=== PATIENT | female | born 1985 | race Caucasian/White ===

== ENCOUNTER 2017-04-21 07:12 | Emergency (ER) | payer MEDICAID ==
[~2017-04-21] VITALS: Ht 157.5 cm; Wt 56.8 kg
[2017-04-21 08:00] LABS: HEMATOCRIT 39.8 % (34.6-47.8); HEMOGLOBIN 13.4 g/dL (11.7-16.4); WHITE BLOOD COUNT 11.1 x10^3/uL (3.4-10)
[2017-04-21] MEDS ORDERED: SODIUM CHLORIDE 0.9% 1,000ML IVBOLUS ONE (08:00)
[2017-04-21] MEDS ORDERED: SODIUM CHLORIDE FLUSH 10ML SYR IVF ONE (08:00)
[2017-04-21 08:13] LABS: BLOOD UREA NITROGEN 7 mg/dL (7-18)
[2017-04-21 08:17] LABS: IS PT STATUS REG ER OR PRE ER? YES
[2017-04-21] MEDS ORDERED: FAMOTIDINE 20 MG/2 ML IVPush ONE (09:00)
[2017-04-21] MEDS ORDERED: OMNIPAQUE 350 MG/ML, 100ML BOTTLE ONE (09:11)
[2017-04-21 10:17] VITALS: BP 119/82
[2017-04-21] MEDS ORDERED: SODIUM CHLORIDE 0.9%, 500ML IVBOLUS ONE (11:00)
[2017-04-21] MEDS ORDERED: ACETAMINOPHEN 325 MG TABLET PO ONE (11:00)
== END 2017-04-21 10:36 | disposition home or self-care (01) ==
LOC: ED 08:18
DX: M94.0 Chondrocostal junction syndrome [Tietze] (principal); Z87.891 Personal history of nicotine dependence
CPT/HCPCS: 36415; 71275; 80048; 81003; 82040; 83880; 84484; 85025; 93005; 96361; 96374; 99285; J7030; J7040; Q9967; S0028

== ENCOUNTER 2017-05-11 08:25 | Outpatient (CLI) | payer MEDICAID ==
[~2017-05-11] VITALS: Ht 157.5 cm; Wt 59.1 kg
[2017-05-11 09:23] LABS: AMNISURE NEGATIVE (NEGATIVE)
== END 2017-05-11 12:25 | disposition home or self-care (01) ==
LOC: LDOP 08:25
PROVIDERS: ATTEND Obstetrics & Gynecology
DX: O62.9 Abnormality of forces of labor, unspecified (principal); Z3A.39 39 weeks gestation of pregnancy
CPT/HCPCS: 59025; 84112; 99201; G0463

== ENCOUNTER 2017-05-12 03:35 | Inpatient (IN) | payer MEDICAID ==
[~2017-05-12] VITALS: Ht 157.5 cm; Wt 58.0 kg
[2017-05-12] MEDS ORDERED: FENTANYL PF 100 MCG/2ML ONE ×2 (03:40→04:34)
[2017-05-12] MEDS ORDERED: OXYTOCIN 30U/ 0.9% NaCL 500ML 500 ML IV ONE (03:40)
[2017-05-12] MEDS ORDERED: OXYTOCIN 30U/ 0.9% NaCL 500ML 500 ML IV PRN (03:40)
[2017-05-12] MEDS ORDERED: D5%-LACTATED RINGERS 1,000 ML IV SCH (03:40)
[2017-05-12] MEDS ORDERED: NEWBORN KIT ONE (03:52)
[2017-05-12] MEDS ORDERED: OXYTOCIN 30U/ 0.9% NaCL 500ML 500 ML ONE ×2 (03:52→16:47)
[2017-05-12] MEDS: LACTATED RINGERS 1,000 ML IV SCH ×7 (03:53→21:07)
[2017-05-12 03:59] LABS: MEAN CORPUSCULAR HEMOGLOBIN 31.8 pg (27.0-34.8); MEAN CORPUSCULAR HGB CONC 33.9 g/dL (32.4-35.8); MEAN CORPUSCULAR VOLUME 93.7 fL (80-100); MEAN PLATELET VOLUME 9.4 fL (7.4-10.4); PLATELET COUNT 164 x10^3/uL (130-400); RED BLOOD COUNT 3.93 x10^6/uL (3.82-5.3); RED CELL DISTRIBUTION WIDTH 13.6 % (9.6-15.2)
[2017-05-12] MEDS ORDERED: ONDANSETRON 2MG/ML, 2ML IVPush PRN (04:00)
[2017-05-12] MEDS ORDERED: FENTANYL PF 100 MCG/2ML IV PRN (04:00)
[2017-05-12] MEDS ORDERED: FENTANYL PF 100 MCG/2ML IVPush PRN (04:00)
[2017-05-12] MEDS ORDERED: METOCLOPRAMIDE 5 MG/ML, 2ML IVPush PRN (04:00)
[2017-05-12] MEDS ORDERED: TERBUTALINE 1 MG/ML, 1ML IVPush PRN (04:00)
[2017-05-12 04:06] VITALS: BP 133/87
[2017-05-12 04:19] LABS: BASOPHILS % (AUTO) 0 % (0-1); EOSINOPHILS % (AUTO) 0 % (1-7); LYMPHOCYTES # (AUTO) 1.26 x10^3/uL (1-3.4); LYMPHOCYTES % (AUTO) 7 % (22-44); MD SCAN; MONOCYTES # (AUTO) 0.66 x10^3/uL (0.2-0.8); MONOCYTES % (AUTO) 4 % (2-9); NEUTROPHILS # (AUTO) 15.81 x10^3/uL (1.8-6.8); NEUTROPHILS % (AUTO) 89 % (42-75)
[2017-05-12] MEDS ORDERED: FENTANYL/BUPIV./NS/PF 250 ML EPIDCONT ONE (04:35)
[2017-05-12] MEDS ORDERED: BUPIVACAINE 0.25% ONE (04:35)
[2017-05-12] MEDS ORDERED: FENTANYL/BUPIV./NS/PF 250 ML EPIDCONT SCH (05:07)
[2017-05-12] MEDS ORDERED: LACTATED RINGERS 1,000 ML IVBOLUS PRN (05:30)
[2017-05-12] MEDS ORDERED: LACTATED RINGERS 1,000 ML INTUTE PRN (08:30)
[2017-05-12] MEDS ORDERED: LACTATED RINGERS 1,000 ML INTUTE SCH (08:30)
[2017-05-12] MEDS ORDERED: TERBUTALINE 1 MG/ML, 1ML ONE (09:11)
[2017-05-12] MEDS ORDERED: LIDOCAINE 1%, 10ML ONE (12:04)
[2017-05-12] MEDS ORDERED: MISOPROSTOL 200 MCG TABLET ONE (12:04)
[2017-05-12] MEDS ORDERED: ACETAMINOPHEN 325 MG TABLET ONE (14:23)
[2017-05-12] MEDS ORDERED: ACETAMINOPHEN 325 MG TABLET PO PRN (14:30)
[2017-05-12] MEDS ORDERED: MISOPROSTOL 200 MCG TABLET PR PRN (16:30)
[2017-05-12] MEDS ORDERED: ONDANSETRON 2MG/ML, 2ML IV PRN (16:30)
[2017-05-12] MEDS ORDERED: IBUPROFEN 600 MG TABLET ONE (16:47)
[2017-05-12] MEDS: OXYcodone IR 5MG TABLET PO PRN (19:26)
[2017-05-12 19:40] VITALS: BP 122/80
[2017-05-13 00:10] VITALS: BP 135/83
[2017-05-13] MEDS: DOCUSATE 100 MG CAPSULE PO PRN ×3 (00:16→23:15)
[2017-05-13] MEDS: IBUPROFEN 600 MG TABLET PO PRN ×4 (00:17→18:06)
[2017-05-13] MEDS: OXYcodone IR 5MG TABLET PO PRN ×6 (00:17→23:16)
[2017-05-13] MEDS: OXYTOCIN 30U/ 0.9% NaCL 500ML 500 ML IV SCH ×2 (02:27→05:11)
[2017-05-13 04:30] VITALS: BP 110/70
[2017-05-13] MEDS: LACTATED RINGERS 1,000 ML IV SCH (04:51)
[2017-05-13 05:31] LABS: MEAN CORPUSCULAR HEMOGLOBIN 31.8 pg (27.0-34.8); MEAN CORPUSCULAR HGB CONC 33.9 g/dL (32.4-35.8); MEAN CORPUSCULAR VOLUME 93.8 fL (80-100); MEAN PLATELET VOLUME 8.9 fL (7.4-10.4); PLATELET COUNT 142 x10^3/uL (130-400); RED BLOOD COUNT 3.55 x10^6/uL (3.82-5.3); RED CELL DISTRIBUTION WIDTH 14.1 % (9.6-15.2)
[2017-05-13 06:38] LABS: BASOPHILS # (AUTO) 0.07 x10^3/uL (0-0.1); BASOPHILS % (AUTO) 0 % (0-1); EOSINOPHILS # (AUTO) 0.04 x10^3/uL (0-0.4); EOSINOPHILS % (AUTO) 0 % (1-7); LYMPHOCYTES # (AUTO) 2.34 x10^3/uL (1-3.4); LYMPHOCYTES % (AUTO) 11 % (22-44); MD SCAN; MONOCYTES # (AUTO) 0.89 x10^3/uL (0.2-0.8); MONOCYTES % (AUTO) 4 % (2-9); NEUTROPHILS % (AUTO) 84 % (42-75)
[2017-05-13 07:24] VITALS: BP 97/64
[2017-05-13] MEDS: PRENATAL VIT/IRON/FA 1 EACH TABLET PO SCH (10:22)
[2017-05-13 12:02] VITALS: BP 123/82
[2017-05-13 16:15] VITALS: BP 116/76
[2017-05-13 20:45] VITALS: BP 120/78
[2017-05-14] MEDS: IBUPROFEN 600 MG TABLET PO PRN ×3 (00:22→15:21)
[2017-05-14] MEDS: OXYcodone IR 5MG TABLET PO PRN ×3 (05:16→15:21)
[2017-05-14] MEDS: PRENATAL VIT/IRON/FA 1 EACH TABLET PO SCH (10:57)
[2017-05-14] MEDS: DOCUSATE 100 MG CAPSULE PO PRN (10:57)
[2017-05-14 11:00] VITALS: BP 135/89
[2017-05-14] MEDS ORDERED: IBUP-1222 PO (14:41)
[2017-05-14] MEDS ORDERED: OXYC-302 PO (14:42)
== END 2017-05-14 15:35 | disposition home or self-care (01) | DRG 775 ==
LOC: LDOP 03:35 → LDIP 03:53 → 2NW 19:18
PROVIDERS: ADMIT Obstetrics & Gynecology; ATTEND Obstetrics & Gynecology
PROC: 0KQM0ZZ Repair Perineum Muscle, Open Approach (ICD-10-PCS; principal; 2017-05-12)
PROC: 10E0XZZ Delivery of Products of Conception, External Approach (ICD-10-PCS; 2017-05-12)
PROC: 3E0R3BZ Introduction of Anesthetic Agent into Spinal Canal, Percutaneous Approach (ICD-10-PCS; 2017-05-12)
PROC: 00HU33Z Insertion of Infusion Device into Spinal Canal, Percutaneous Approach (ICD-10-PCS; 2017-05-12)
DX: O76 Abnormality in fetal heart rate and rhythm complicating labor and delivery (principal); O69.81X0 Labor and delivery complicated by cord around neck, without compression, not applicable or unspecified; O70.1 Second degree perineal laceration during delivery; Z37.0 Single live birth; Z3A.39 39 weeks gestation of pregnancy
CPT/HCPCS: 36415; 82803; 85025; 86850; 86900; J3010; J2590; J7120; J7121